=== PATIENT | male | born 1990 | race Caucasian/White ===

== ENCOUNTER 2024-02-23 08:59 | Emergency (ER) | payer OTHER ==
[~2024-02-23] VITALS: Ht 167.6 cm; Wt 83.3 kg
[2024-02-23 10:48] VITALS: BP 120/73; TEMP 97.5; O2SAT 97
== END 2024-02-23 11:39 | disposition home or self-care (01) ==
LOC: M ED 08:59
DX: J06.9 Acute upper respiratory infection, unspecified (principal)